=== PATIENT | male | born 1980 | race Caucasian/White ===

== ENCOUNTER 2017-03-17 22:09 | Inpatient (IN) | payer OTHER ==
[~2017-03-17] VITALS: Ht 188 cm; Wt 136.1 kg
[2017-03-17 22:10] VITALS: BP 154/113; PULSE 76; RESP 20; TEMP 97.1; O2SAT 97
--- NOTE | 2017-03-17 22:20 | NUR ---
Patient to ER bed 2 to gown for evaluation. Side rails up. Report given to ASHLIE LOBO.
--- NOTE | 2017-03-17 22:34 | NUR ---
Patient to ER C/O dull aching left sided chest pain 6/10 radiating to neck & left shoulder. Patient states that it started 4 days ago and gradually the pain increased. Denies N/V, non-diaphoretic, no signs of acute distress.
--- NOTE | 2017-03-17 22:48 | NUR ---
ER MD Elizondo at bedside for evaluation
--- NOTE | 2017-03-17 23:50 | NUR ---
SOMMER Ramey at bedside examining patient.
[2017-03-18] MEDS ORDERED: ASPIRIN 81 MG TAB.CHEW ONE (00:13)
--- NOTE | 2017-03-18 00:14 | NUR ---
PORTABLE CHEST X-RAY IN PROGRESS.
[2017-03-18] MEDS ORDERED: ASPIRIN 81 MG TAB.CHEW PO ONE (00:15)
[2017-03-18] MEDS ORDERED: LORazepam 2 MG/ML VIAL (FOR ER USE) IVP ONE (00:15)
[2017-03-18 00:35] LABS: BASOPHILS # (AUTO) 0.1 K/uL (0.0-0.2); BASOPHILS % (AUTO) 1.8 % (0.0-2.0); EOSINOPHILS # (AUTO) 0.1 K/uL (0.0-0.4); EOSINOPHILS % (AUTO) 1.6 % (0.0-4.0); HEMATOCRIT 48.4 % (36-54); HEMOGLOBIN 15.6 g/dL (14.0-18.0); LYMPHOCYTES # (AUTO) 2.3 K/uL (1.0-5.5); LYMPHOCYTES % (AUTO) 29.2 % (20.5-51.5); MEAN CORPUSCULAR HEMOGLOBIN 26 pg (27-31); MEAN CORPUSCULAR HGB CONC 32 % (32-36); MEAN CORPUSCULAR VOLUME 81 fL (79.0-98.0); MONOCYTES # (AUTO) 0.7 K/uL (0.0-1.0); MONOCYTES % (AUTO) 9.1 % (1.7-9.3); NEUTROPHILS # (AUTO) 4.8 K/uL (1.8-7.7); NEUTROPHILS % (AUTO) 58.3 % (40.0-70.0); PLATELET COUNT (AUTO) 174 K/uL (130-430); RED BLOOD CELL COUNT(AUTO) 5.99 MIL/uL (4.2-6.2); RED CELL DISTRIBUTION WIDTH 14.4 % (9.0-15.0)
[2017-03-18 00:45] LABS: BILIRUBIN,URINE NEGATIVE (NEGATIVE); BLOOD, URINE NEGATIVE (NEGATIVE); CLARITY/URINE CLEAR (CLEAR); COLOR,URINE YELLOW (YELLOW); GLUCOSE,URINE NEGATIVE (NEGATIVE); KETONES,URINE NEGATIVE (NEGATIVE); LEUKOCYTE ESTERASE ,URINE NEGATIVE (NEGATIVE); NITRITE, URINE NEGATIVE (NEGATIVE); PH,URINE 6.5 (5.0-8.0); PROTEIN URINE NEGATIVE (NEGATIVE); UROBILINOGEN,URINE 0.2 (0.2-1.0)
[2017-03-18 00:47] LABS: CALCIUM 9.4 mg/dL (8.4-11.0); CREATININE 1.08 mg/dL (0.55-1.30); POTASSIUM 3.9 mmol/L (3.5-5.1)
[2017-03-18 00:52] LABS: ALBUMIN 4.5 g/dL (3.4-4.8); TOTAL BILIRUBIN 0.4 mg/dL (0.0-1.0); TOTAL PROTEIN, SERUM 7.7 g/dL (6.4-8.3)
--- NOTE | 2017-03-18 01:49 | NUR ---
Medication reconciliation completed with information provided by - verbal from patient. Any prior medication reconciliation on file was reviewed and corrected.
[2017-03-18] MEDS ORDERED: METF-510 PO (01:54)
[2017-03-18] MEDS ORDERED: LOSA25TA3 PO (01:54)
[2017-03-18] MEDS ORDERED: AMIO100T4 PO (01:54)
--- NOTE | 2017-03-18 02:12 | NUR ---
Patient will be admitted to care of DR CONNOLLY. Admitted to TELE IN unit. Will go to room 135. Belongings list completed. Summary report printed. Report will be given at bedside.
[2017-03-18] MEDS ORDERED: NACL 0.9% 1,000 ML IV SCH (02:13)
[2017-03-18] MEDS ORDERED: INSULIN REGULAR, HUMAN 100 UNITS/ML, 10 ML VIAL (novoLIN R) SUBCUT PRN (02:15)
--- NOTE | 2017-03-18 02:22 | NUR ---
[facility] Licensed nurse present. IV present no signs or symptoms of infiltration.
--- NOTE | 2017-03-18 02:29 | NUR ---
ADMISSION NOTE Received patient from ER via [facility]ney, received report from YAMIL DAILEY. Patient admitted with diagnosis of CHEST PAIN. Patient oriented to hospital routine, call light, toileting and safety-patient verbalized understanding.
[2017-03-18 02:34] VITALS: BP 176/114; PULSE 69; RESP 16; TEMP 98.5; O2SAT 96
[2017-03-18 02:47] VITALS: BP 176/114; PULSE 72; RESP 17; TEMP 97; O2SAT 97
[2017-03-18] MEDS ORDERED: AMLO5TAB4 PO (02:49)
--- NOTE | 2017-03-18 04:15 | NUR ---
ROUNDS PT. IN BED RESTING AT THIS TIME. NO S/S OF SOB OR DISTRESS NOTED. VSS. BLOOD PRESSURE WITHIN A NORMAL RANGE. PT. DENIES PAIN AT THIS TIME. WILL CONT. TO MONITOR. IV FLUIDS INFUSING WELL ORDERED. CALL LIGHT IN REACH.
--- NOTE | 2017-03-18 05:30 | NUR ---
Consult called Reason for consultation: Chest Pain Was consult called: Yes Person who was notified: Gem Setter 22 Consulting Physician: Mayra Lockhart [employer] Cook Specialty: Nurse Practitioner Physicians Assistant Order by Dr. Montes
[2017-03-18 06:35] LABS: BASOPHILS % (AUTO) 0.4 % (0.0-2.0); EOSINOPHILS # (AUTO) 0.2 K/uL (0.0-0.4); EOSINOPHILS % (AUTO) 2.4 % (0.0-4.0); HEMOGLOBIN 15.2 g/dL (14.0-18.0); LYMPHOCYTES # (AUTO) 2.3 K/uL (1.0-5.5); LYMPHOCYTES % (AUTO) 32.8 % (20.5-51.5); MEAN CORPUSCULAR HEMOGLOBIN 26 pg (27-31); MEAN CORPUSCULAR HGB CONC 32 % (32-36); MEAN CORPUSCULAR VOLUME 81 fL (79.0-98.0); MONOCYTES # (AUTO) 0.6 K/uL (0.0-1.0); MONOCYTES % (AUTO) 8.4 % (1.7-9.3); NEUTROPHILS # (AUTO) 3.9 K/uL (1.8-7.7); PLATELET COUNT (AUTO) 162 K/uL (130-430); RED CELL DISTRIBUTION WIDTH 14.9 % (9.0-15.0)
--- NOTE | 2017-03-18 06:35 | NUR ---
CLOSING NOTE PT. RESTING IN BED AT THIS TIME. NO S/S OF SOB OR DISTRESS NOTED. PT. DENIES PAIN. MORNING ACCU CHECK DONE, PT BLOOD SUGAR WITHIN NORMAL LIMITS, NO INSULIN COVERAGE REQUIRED PER SLIDING SCALE. HEART RATE AT THIS TIME IS 57 BPM ON THE MONITOR. PT. IS ASYMPTOMATIC AND STATES HE FEELS WELL. IV FLUIDS CONTINUE TO INFUSE WELL ORDERED. SAFETY AND FALL PRECAUTIONS WERE MAINTAINED THIS SHIFT. WILL ENDORSE CARE TO AM NURSE. CALL LIGHT IN REACH, BED IN LOWEST LOCKED POSITION.
[2017-03-18 06:48] LABS: CALCIUM 8.8 mg/dL (8.4-11.0); CREATININE 0.93 mg/dL (0.55-1.30); POTASSIUM 3.5 mmol/L (3.5-5.1); TOTAL BILIRUBIN 0.4 mg/dL (0.0-1.0); TOTAL PROTEIN, SERUM 7.1 g/dL (6.4-8.3)
--- NOTE | 2017-03-18 07:10 | NUR ---
AM rounding notes Reported given at bedside by Rosalind. Patient appears to be resting. Call light is with in reach. Bed is in the lowest position.
[2017-03-18] MEDS ORDERED: GLUCOSE 15 GM GEL (in 37.5 GM TUBE) PO PRN ×2 (07:30)
[2017-03-18] MEDS ORDERED: DEXTROSE 50%-WATER 50 ML DISP.SYRIN IVP PRN ×2 (07:30)
--- NOTE | 2017-03-18 08:39 | NUR ---
Rn rounding notes Pateint is awake and eating breakfast. Assessment and vital completed. 0900 medication was administered. Patient states he is in 0/10 pain no other intervention needed.
[2017-03-18 08:41] VITALS: BP 144/96; PULSE 68; RESP 18; TEMP 96.6; O2SAT 100
[2017-03-18] MEDS ORDERED: ASPIRIN 81 MG TAB.CHEW PO SCH (09:00)
[2017-03-18] MEDS ORDERED: METOPROLOL TARTRATE 25 MG TABLET PO SCH (09:00)
[2017-03-18] MEDS ORDERED: ENOXAPARIN SODIUM 40 MG/0.4 ML SYRINGE SUBCUT SCH (09:00)
[2017-03-18] MEDS ORDERED: ASPI-1063 PO (09:36)
[2017-03-18] MEDS ORDERED: PRO40 PO (09:37)
[2017-03-18 10:25] VITALS: BP 148/88; PULSE 70; RESP 18; TEMP 96.4; O2SAT 97
[2017-03-18 10:33] VITALS: BP 148/88; PULSE 70; RESP 18; TEMP 96.4; O2SAT 97
--- NOTE | 2017-03-18 11:01 | NUR ---
discharge note Patient informed of transitional care. Packet was reviewed with patient and patient verbalized understanding no further question. Patient was picked up by Carlotta. Escorted patient to parking lot by walking .
--- NOTE | 2017-03-21 14:44 | NUR ---
Discharge Follow Up Phone Call DRIVING TEACHER phoned patient, . Patient stated he was doing okay. He had just had his stress test. He has not made his follow up appointments as he stated they will call with an appointment or instructions based on the results of the stress test. Patient filled his prescription and is taking it as directed. He has no questions or concerns.
== END 2017-03-18 11:05 | disposition home or self-care (01) | DRG 392 ==
LOC: SED 22:09 → STU 03-18 02:13
PROVIDERS: ADMIT General Practice; ATTEND General Practice
DX: K21.9 Gastro-esophageal reflux disease without esophagitis (principal); E11.9 Type 2 diabetes mellitus without complications; R07.89 Other chest pain; F17.200 Nicotine dependence, unspecified, uncomplicated; I10 Essential (primary) hypertension; E66.9 Obesity, unspecified; Z68.38 Body mass index [BMI] 38.0-38.9, adult; Z83.3 Family history of diabetes mellitus; Z82.49 Family history of ischemic heart disease and other diseases of the circulatory system; Z79.899 Other long term (current) drug therapy; Z79.84 Long term (current) use of oral hypoglycemic drugs
CPT/HCPCS: 36415; 71010; 80053; 81003; 82962; 83880; 84484; 85025; 93005; 99285; J1650; J1815; J7030

== ENCOUNTER 2017-12-31 19:55 | Emergency (ER) | payer OTHER ==
[~2017-12-31] VITALS: Ht 188 cm; Wt 134.3 kg
[~2017-12-31 19:55] MED LIST: AMLO5TAB4 PO; ASPI-1063 PO; LOSA25TA3 PO; METF-510 PO; PRO40 PO
[2017-12-31 20:11] VITALS: BP_SYST 177
[2017-12-31 21:27] VITALS: BP_SYST 171
== END 2017-12-31 21:27 | disposition home or self-care (01) ==
LOC: SED 19:55
DX: J02.8 Acute pharyngitis due to other specified organisms (principal); B97.89 Other viral agents as the cause of diseases classified elsewhere; L03.313 Cellulitis of chest wall; L70.9 Acne, unspecified; E11.9 Type 2 diabetes mellitus without complications; I10 Essential (primary) hypertension; Z79.899 Other long term (current) drug therapy
CPT/HCPCS: 36415; 86403; 87081; 99284

== ENCOUNTER 2023-02-24 00:09 | Emergency (ER) | payer BC, OTHER ==
[~2023-02-24] VITALS: Ht 188 cm; Wt 133.8 kg
[~2023-02-24 00:09] MED LIST changes: -ASPI-1063 PO; +ASPI-1393 PO; -METF-510 PO; +METF-518 PO
--- NOTE | 2023-02-24 00:23 | NUR ---
Patient to ER bed 3 to gown for evaluation. Side rails up. Report given to Jorge LOBO(darlin).
[2023-02-24 00:24] VITALS: BP_SYST 160
--- NOTE | 2023-02-24 00:30 | NUR ---
FIRST CONTACT WITH PT. ASSESSMENT COMPLETED. AWAITING EVAL AND ORDERS.
[2023-02-24] MEDS ORDERED: NACL 0.9% 1,000 ML IV ONE ×2 (01:00)
[2023-02-24 01:38] LABS: BASOPHILS % (AUTO) 0.6 % (0.0-2.0); EOSINOPHILS # (AUTO) 0.1 K/uL (0.0-0.4); EOSINOPHILS % (AUTO) 1.8 % (0.0-4.0); HEMATOCRIT 47.6 % (36-54); HEMOGLOBIN 15.6 g/dL (14.0-18.0); LYMPHOCYTES # (AUTO) 1.6 K/uL (1.0-5.5); LYMPHOCYTES % (AUTO) 31.8 % (20.5-51.5); MEAN CORPUSCULAR HEMOGLOBIN 27 pg (27-31); MEAN CORPUSCULAR HGB CONC 33 % (32-36); MEAN CORPUSCULAR VOLUME 82 fL (79.0-98.0); MONOCYTES # (AUTO) 0.5 K/uL (0.0-1.0); MONOCYTES % (AUTO) 10.1 % (1.7-9.3); NEUTROPHILS # (AUTO) 2.8 K/uL (1.8-7.7); NEUTROPHILS % (AUTO) 55.7 % (40.0-70.0); PLATELET COUNT (AUTO) 143 K/uL (130-430); RED BLOOD CELL COUNT(AUTO) 5.83 MIL/uL (4.2-6.2); RED CELL DISTRIBUTION WIDTH 15.2 % (9.0-15.0); WHITE BLOOD COUNT (AUTO) 5.1 K/uL (4.8-10.8)
[2023-02-24 01:58] LABS: ALBUMIN 3.8 g/dL (3.4-4.8); CALCIUM 8.7 mg/dL (8.4-11.0); CREATININE 1.16 mg/dL (0.55-1.30); TOTAL BILIRUBIN 0.4 mg/dL (0.0-1.0)
[2023-02-24 03:07] VITALS: BP_SYST 136
--- NOTE | 2023-02-24 03:12 | NUR ---
Patient given written and verbal discharge instructions and verbalizes understanding. ER MD MATSON discussed with patient the results and treatment provided. Patient in stable condition. ID arm band removed. IV catheter removed intact and dressing applied, no active bleeding. NO Rx given. Patient educated on pain management and to follow up with PMD. Pain Scale . Opportunity for questions provided and answered. Medication side effect fact sheet provided.
== END 2023-02-24 03:08 | disposition home or self-care (01) ==
LOC: SED 00:09
DX: E11.65 Type 2 diabetes mellitus with hyperglycemia (principal); R74.01 Elevation of levels of liver transaminase levels; I10 Essential (primary) hypertension; Z79.899 Other long term (current) drug therapy
CPT/HCPCS: 99283; 96360; 80053; 82962; 83735; 85025; 36415; J7030